=== PATIENT | male | born 1965 | race Caucasian/White ===

== ENCOUNTER 2019-10-25 08:40 | Outpatient (CLI) | payer OTHER, SELFPAY ==
[2019-10-25 13:34] LABS: Blood Urea Nitrogen 11 mg/dL (9-20); Calcium 9.6 mg/dL (8.4-10.2); Carbon Dioxide 29 mmol/L (22-30); Chloride 96 mmol/L (98-107); Estimated Glomerular Filt Rate > 60; Glucose 269 mg/dL (75-110); Potassium 4.4 mmol/L (3.4-5.0); Sodium 138 mmol/L (137-145)
[2019-10-28 05:10] LABS: C-Peptide 0.89 ng/mL (0.80-3.85)
[2019-10-28 06:17] LABS: Glutamic acid decarboxylase AA <5 IU/mL (<5)
[2019-11-01 00:11] LABS: Islet Cell Antibody Screen NEGATIVE (NEGATIVE)
[2019-11-01 20:13] LABS: Zinc Transporter 8 Antibody <10 U/mL (<15)
== END 2019-10-25 08:41 | disposition home or self-care (01) ==
LOC: ANHWCLAB 08:43
PROVIDERS: PCP Internal Medicine Endocrinology, Diabetes & Metabolism; Referring Provider Internal Medicine Endocrinology, Diabetes & Metabolism; Visit Provider Internal Medicine Endocrinology, Diabetes & Metabolism
DX: E11.9 Type 2 diabetes mellitus without complications (principal)
CPT/HCPCS: 36415; 80048; 84681; 86341